=== PATIENT | male | born 1965 | race Caucasian/White ===

== ENCOUNTER 2020-07-23 00:21 | Emergency (ER) | payer OTHER, SELFPAY ==
[2020-07-23 00:33] VITALS: BP 151/83; PULSE 81; RESP 17; TEMP 36.9; O2SAT 98; BMI 27.0
--- NOTE | 2020-07-23 00:45 | W.ED.ALLEREA ---
HPI - Allergic Reaction General: Chief complaint: Allergic Reaction Stated complaint: adverse reaction to med Time Seen by Provider: 07/23/20 00:41 Source: patient Mode of arrival: ambulatory Limitations: no limitations History of Present Illness: HPI narrative: 55-year-old male patient comes in today for complaints of drug reaction. Patient was on Augmentin and tamsulosin for possible prostatitis. Patient had taken the medication for 2 or 3 days and did not feel good so he stopped it. Over the last 2 days he has felt better but tonight he thought he needed to finish up the medication so he took it prior to laying down. After laying down patient started getting some discomfort, dry mouth, and strange taste in his mouth. Since driving up here and coming to be seen he has felt a lot better. Patient appears well. Patient appears in no acute distress. Patient does report some chest discomfort but not pain. Review of Systems General: Reports: 10 or more systems reviewed and unremarkable except in HPI and below ENMT: Reports: dry mouth PFSH ED PFSH: Social History (Updated 06/03/19 @ 10:16 by Yolanda Goldberg LPN) Smoking and tobacco status: former smoker Alcohol intake: current Current occupation: [employer] Physical Exam Const: COMMON NORMALS: no acute distress and patient oriented x3 GENERAL APPEARANCE: cooperative HENMT: COMMON NORMALS: normocephalic, TM's normal bilaterally and Normal external nose present HEAD & SCALP: normal to inspection and normocephalic NOSE: Normal external nose present TYMPANIC MEMBRANE: TM's normal bilaterally MOUTH: Normal oral and palatal mucosa present THROAT: posterior oropharynx normal Eye: GENERAL EYE: appearance normal, both eyes and all related structures Neck/C-Spine: COMMON NORMALS: full ROM Lymph: LYMPHATIC: no lymphadenopathy noted Chest: COMMONS NORMALS: normal inspection of the chest Resp: COMMON NORMALS: normal respiratory effort EFFORT & INSPECTION: Yes able to speak in complete sentences Cardio: COMMON NORMALS: regular rate and regular rhythm RATE: regular rate RHYTHM: regular rhythm GI: COMMON NORMALS: non-tender Extremity: COMMON NORMALS: normal to inspection Neuro: COMMON NORMALS: patient oriented x3 and moves all extremities Psych: COMMON NORMALS: mental status grossly normal and cooperative Skin: COMMON NORMALS: no rashes or lesions noted GENERAL SKIN EXAM: no rashes or lesions noted Course Vital Signs: Vital signs: Vital Signs Temperature 98.4 F 07/23/20 00:33 Pulse Rate 77 07/23/20 01:08 Respiratory Rate 18 07/23/20 01:08 Blood Pressure 114/80 07/23/20 01:08 Pulse Oximetry 100 07/23/20 01:08 MDM - Allergic Reaction MDM Narrative: Medical decision making narrative: Patient comes in today for possible drug reaction. Patient prior to coming to the emergency room felt like he had a very dry mouth and strange taste in his mouth and some chest discomfort. Patient also felt anxious and worried that he may be having a drug reaction. Since arriving to the ER patient reports that his symptoms have almost alleviated. Exam notes posterior pharynx is normal, tongue is normal, respirations are even lungs are clear to auscultation. Vital signs are normal. Differential diagnosis includes anaphylaxis, adverse drug effect, GERD. EKG showed a sinus rhythm with no obvious ST elevation or ectopy. Rate was regular at 63 bpm. No prior exam is available. Orthostatic blood pressures were normal. Patient had improving symptoms after sitting up longer. I believe patient probably had some reflux aggravated by Augmentin. I recommended the patient talk with Dr. Bradford tomorrow regarding the medications and what his recommendations for further treatment. Patient reported understanding and agreed to plan. Discharge Plan Discharge Patient Disposition: Home Clinical Impression: Adverse drug effect Qualifiers: Encounter type: initial encounter Qualified Code(s): T50.905A - Adverse effect of unspecified drugs, medicaments and biological substances, initial encounter Condition: Stable Prescriptions: No Action duloxetine [Cymbalta] 30 mg capsule,delayed release(DR/EC) 30 mg PO QDAY RF: 0 clonazepam [Klonopin] 1 mg tablet 1 mg PO BID RF: 0 tamsulosin 0.4 mg capsule 0.4 mg PO DAILY RF: 0 amoxicillin-pot clavulanate 500-125 mg tablet 1 tab PO TID RF: 0 Discharge Orders: Discharge ED (Routine); Ordered 07/23/20 Ordered By: Scot Wilson Referrals: Leo Bradford MD [Primary Care Provider] - Discharge Diet: Usual diet Discharge Activity: Increase activity as tolerated Patient Instructions: Opioid Safety Activity Restrictions/Additional Instructions: Talk with Dr. Bradford about medications in the morning. Drink plenty of water. Take your medication at least 1 hour prior to going to bed and set up for at least 30 minutes prior to laying down. It may also be necessary for you to take the Augmentin closer to your mealtime to avoid dyspepsia. Follow-up with primary care. Return to the emergency department for new concerns. Coding Level of Care Code ED Ecologist Technician for Tayla Knox Exam Comprehensive
--- NOTE | 2020-07-23 00:53 | ECG_ITS ---
[facility] Test Date: 2020-07-22 Pat Name: ePrico De La Cruz Department: Room: Gender: Male Family Support Specialist: : [id number] Requested By: Scot Alfaro Order Number: [id number] Gretchen MD: Gustavo Haddad M.D. Measurements Intervals [place] Rate: 63 P: 62 TN: 200 QRS: 63 QRSD: 111 T: 53 QT: 384 QTc: 394 Interpretive Statements SINUS RHYTHM POSSIBLE LEFT VENTRICULAR HYPERTROPHY [VOLTAGE CRITERIA PLUS LAE OR QRS WIDENING] No previous ECG available for comparison Electronically Signed On 07-23-2020 23:54:09 CDT by Gustavo Haddad M.D. [id number]
[2020-07-23 01:05] VITALS: BP 112/74; BP 114/80; BP 121/72; PULSE 65; PULSE 73; PULSE 77
[2020-07-23 01:08] VITALS: BP 114/80; PULSE 77; RESP 18; O2SAT 100
[2020-07-23 02:02] VITALS: BP 142/80; PULSE 74; RESP 18; O2SAT 98
== END 2020-07-23 02:03 | disposition home or self-care (01) ==
PROVIDERS: Emergency Provider Nurse Practitioner Family; PCP Family Medicine
DX: T88.7XXA Unspecified adverse effect of drug or medicament, initial encounter (principal); T50.905A Adverse effect of unspecified drugs, medicaments and biological substances, initial encounter; Z87.891 Personal history of nicotine dependence
CPT/HCPCS: 93005; 99282

== ENCOUNTER → 2021-05-14 09:47 | Outpatient (BNVA) | payer OTHER, SELFPAY | PROVIDERS: PCP Family Medicine; Visit Provider Orthopaedic Surgery | DX: M54.9 Dorsalgia, unspecified (principal) | CPT/HCPCS: 72110 ==

== ENCOUNTER 2021-06-07 10:46 | Outpatient (CLI) | payer OTHER, SELFPAY ==
--- NOTE | 2021-06-07 10:54 | MR_ITS ---
WS: [id number] MRI LUMBAR SPINE NONCONTRAST TECHNIQUE: Sagittal T1, T2 and STIR imaging. Axial T1 and T2 imaging. CLINICAL INFORMATION: M48.062 - Spinal stenosis, lumbar region with neurogenic ... COMPARISON: MRI 6 FINDINGS: Mild lumbar curve. No acute compression. No high-grade central canal stenosis. Small annular tear L5- S1. L1-L2: Normal. L2-L3: Normal. L3-L4: Mild annular bulging with slight effacement of ventral thecal sac. New small right foraminal p rotrusion with annular tear. Mild/moderate right foraminal narrowing with impingement on the exiting right L3 nerve root. Slight narrowing of the right subarticular recess. Left foramen is patent. Mild facet arthropathy. L4-L5: Mild annular bulging with slight narrowing of the left greater than right subarticular recess. Mild facet arthropathy. Mild left foraminal narrowing with left eccentric disc bulging and small lef t foraminal protrusion. Mild facet arthropathy. L5-S1: Mild annular bulging with a shallow central disc protrusion. Slight effacement of ventral thec al sac. Mild facet arthropathy. Small annular tear. Spinal canal and foramen are patent. Visualized pelvic bony structures: Normal. Paravertebral soft tissues: Normal. MR/MR lumbar spine wo con* [id number] IMPRESSION: 1. Mild lumbar curve. No acute compression. No high-grade central canal stenos is. 2. Right proximal foraminal protrusion L3-4 with a small annular fissure impin ges the exiting right L3 nerve root. This is new from previous. Recommend corre lation for right L3 nerve root symptoms. 3. Disc bulging L4-5 eccentric to the left with slight impingement on the leah ersing left L5 nerve root in the subarticular recess and mild left L4-5 foramin al narrowing. This slightly contacts the exiting left L4 nerve root. This is sl ightly more prominent compared to previous. 4. Shallow central protrusion L5-S1 with a tiny annular fissure. Spinal canal and foramen are patent at this level. This is unchanged compared to previous.
== END 2021-06-07 10:47 | disposition home or self-care (01) ==
PROVIDERS: PCP Family Medicine; Visit Provider Orthopaedic Surgery
DX: M48.062 Spinal stenosis, lumbar region with neurogenic claudication (principal); M51.27 Other intervertebral disc displacement, lumbosacral region; M51.26 Other intervertebral disc displacement, lumbar region
CPT/HCPCS: 72148

== ENCOUNTER → 2022-08-02 15:08 | Outpatient (BNVA) | payer OTHER, SELFPAY | PROVIDERS: PCP Family Medicine; Visit Provider Nurse Practitioner | DX: J02.9 Acute pharyngitis, unspecified (principal) | CPT/HCPCS: 87071; 87880 ==